=== PATIENT | male | born 1945 | race African-American/Black ===

== ENCOUNTER → 2017-06-02 07:48 | Outpatient (CLI) | payer MEDICARE, OTHER ==
[2016-01-27 14:07] VITALS: BMI 28.1
[~2017-06-02 07:48] MED LIST: BAYER CHEWABLE81 MG PO; GLUCOPHAGE500 MG PO; LIPITOR40 MG PO; MULTIPLE VITAMI1 TA1 PO; ZESTRIL40 MG PO
== END | disposition home or self-care (01) ==
LOC: D.CT 07:48
DX: E27.8 Other specified disorders of adrenal gland (principal)